=== PATIENT | male | born 1970 | race Caucasian/White ===

== ENCOUNTER 2016-12-16 19:37 | Emergency (ER) | payer OTHER ==
[2016-12-16] MEDS ORDERED: Sodium Chloride 0.9% 10 ML Syringe FLUSH PRN (19:40)
[2016-12-16] MEDS ORDERED: HYDROmorphone 2 MG/ML SDV IVPUSH ONE (19:40)
[2016-12-16] MEDS ORDERED: Ketorolac 30 MG/ML SDV IVPUSH ONE (19:41)
[2016-12-16 21:37] VITALS: BP 144/95
[2016-12-16] MEDS ORDERED: Acetaminophen/oxyCODONE 325-5 MG Tab PO ONE (21:49)
[2016-12-16] MEDS ORDERED: Cyclobenzaprine 10 MG Tab PO ONE (21:49)
--- NOTE | 2016-12-17 03:15 | ER ---
DATE SEEN: 12/16/2016 TIME SEEN: 2015 hours. CHIEF COMPLAINT: Back pain. HISTORY OF PRESENT ILLNESS: This is a 46-year-old male with acute back pain. He was standing when he felt a spasm in the left lower back and he almost fell to the floor. Since that time, he has been unable to move. The pain is severe with no radiation and worse with any movement. He has not taken anything to relieve the pain. He denies any trauma. REVIEW OF SYSTEMS: No difficulty with urination. No fever. No weakness or numbness. ALLERGIES: Dane. PAST MEDICAL HISTORY: GERD, hypertension, and PTSD. SOCIAL HISTORY: He does not smoke or drink. PHYSICAL EXAMINATION: VITAL SIGN: His blood pressure is 144/95, temperature 97.9. EXTREMITIES: Lower back, there is tenderness on the left lower lumbar spine and hypertonicity of the muscles. Range of motion is severely limited. CHEST: Normal. NEUROLOGIC: Nonfocal. IMPRESSIONS: Acute lumbar spasm. PLAN: I gave him 10 mg IV Valium and 1 mg of Dilaudid. His pain improved. He still had some difficulty with ambulation. Prescription for Percocet and Flexeril was given to use for pain. /[id number] SHERIE/ADAN
== END 2016-12-16 20:15 | disposition home or self-care (01) ==
LOC: FB.ED 19:37
DX: M62.830 Muscle spasm of back (principal); K21.9 Gastro-esophageal reflux disease without esophagitis; I10 Essential (primary) hypertension; Z91.018 Allergy to other foods
CPT/HCPCS: 96374; 96375; 99283; J1170; J1885; J3360; J7050; A9270-GY